=== PATIENT | male | born 1945 | race Caucasian/White ===

== ENCOUNTER 2021-11-20 18:29 | Emergency (ER) | payer MEDICARE, BC ==
[2021-11-20 18:49] VITALS: TEMP 97.6
[2021-11-20 19:13] LABS: BASO % 0.4 % (0.0-2.0); EOS # 0.1 K/mm3 (0.0-0.7); EOS % 0.7 % (0.0-4.0); GRAN % 71.5 % (42.2-75.2); HEMATOCRIT 41.8 % (42.0-52.0); HEMOGLOBIN 14.4 g/dl (13.5-18.0); LYMPH # 1.5 K/mm3 (1.2-3.4); LYMPH % 20.8 % (20.0-51.0); MEAN CELL VOLUME 86 fl (80.0-100.0); MEAN CORPUSCULAR HEMOGLOBIN 30 pg (27-31); MEAN CORPUSCULAR HGB CONC 34 g/dl (33.0-37.0); MONO # 0.4 K/mm3 (0.1-0.6); MONO % 6.3 % (1.7-9.3); PLATELET COUNT 208 K/mm3 (130-400); RED BLOOD COUNT 4.86 M/mm3 (4.20-5.60); REDCELL DISTRIBUTION WIDTH-CV 11.9 % (11.5-14.5)
[2021-11-20 19:36] LABS: ALANINE AMINOTRANSFERASE 28 U/L (0-55); ALBUMIN 3.8 gm/dL (3.4-4.8); ALKALINE PHOSPHATASE 71 U/L (40-150); ANION GAP 11 mmol/L (7-16); AST,SGOT 17 U/L (5-34); BILIRUBIN,TOTAL 0.6 mg/dL (0.2-1.2); BLOOD UREA NITROGEN 23 mg/dL (8-26); CALCIUM 8.8 mg/dL (8.4-10.2); CARBON DIOXIDE 24 mmol/L (23-31); CHLORIDE 102 mmol/L (98-107); CREATININE, serum 1.22 mg/dL (0.72-1.25); GLUCOSE 210 mg/dL (70-99); SODIUM 137 mmol/L (136-145); TOTAL PROTEIN 6.8 gm/dL (6.2-8.1)
[2021-11-20 19:49] LABS: TROPONIN-I < 0.010 ng/mL (0.00-0.033)
[2021-11-20 20:47] VITALS: BP 106/71; PULSE 63
== END 2021-11-20 20:47 | disposition home or self-care (01) ==
LOC: COL.ER 18:29
PROVIDERS: Student in an Organized Health Care Education/Training Program
DX: R55 Syncope and collapse (principal); R53.1 Weakness; I10 Essential (primary) hypertension; Z86.73 Personal history of transient ischemic attack (TIA), and cerebral infarction without residual deficits; Z79.02 Long term (current) use of antithrombotics/antiplatelets

== ENCOUNTER 2022-10-08 11:15 | Day surgery (SDC) | payer MEDICARE, BC ==
[~2022-10-08] VITALS: Ht 177.8 cm; Wt 93.0 kg
[2022-10-08 11:46] VITALS: BP 147/92; PULSE 59; TEMP 98
[2022-10-08] MEDS ORDERED: LIPITOR 80MG80 MG PO (11:55)
[2022-10-08] MEDS ORDERED: PRINIVIL20 MG PO (11:57)
[2022-10-08] MEDS ORDERED: PLAVIX 75MG TAB75 MG PO (11:58)
[2022-10-08] MEDS ORDERED: NORVASC 5MG5 MG/TAB PO (11:59)
[2022-10-08] MEDS ORDERED: MIRAPEX1.5 MG PO (11:59)
[2022-10-08] MEDS ORDERED: TURMERIC500 MG PO (12:00)
[2022-10-08] MEDS ORDERED: PHARMASSURE ZIN50 MG PO (12:00)
[2022-10-08] MEDS ORDERED: MIRAPEX 1MG PO (12:01)
[2022-10-08 13:00] VITALS: PULSE 60
--- NOTE | 2022-10-08 13:30 | NUR ---
PT ready to go home. Loop site looks good, dressing is clean and dry. Pt denies any questions about dc/fu instructions. I walked with pt and his to their car. Pt with steady gait with his cane.
== END 2022-10-08 16:53 | disposition home or self-care (01) ==
LOC: COL.CAR 11:15
DX: R55 Syncope and collapse (principal); F17.220 Nicotine dependence, chewing tobacco, uncomplicated; I65.23 Occlusion and stenosis of bilateral carotid arteries; I10 Essential (primary) hypertension; Z86.73 Personal history of transient ischemic attack (TIA), and cerebral infarction without residual deficits; Z79.01 Long term (current) use of anticoagulants